=== PATIENT | male | born 1985 | race Hispanic/Latino ===

== ENCOUNTER 2019-12-12 09:49 | Emergency (ER) | payer OTHER, SELFPAY ==
[2019-12-12 10:01] VITALS: BP 123/69; PULSE 72; RESP 16; TEMP 36.8; O2SAT 100
--- NOTE | 2019-12-12 11:18 | ED.BACK ---
HPI - Back Pain/Injury General Chief Complaint: Back Pain/Injury Stated Complaint: Back Pain History of Present Illness HPI Narrative: This is a 34-year-old male comes in complaining of thoracic back pain that started approximately a week ago per patient states that he was getting out of the truck and turned and he started having pain put something on it and the pain went away. Patient said the pain has come back off and on and when he reaches his back hurts. Patient denies any shortness of breath or pain with breathing Related Data Allergies Allergy/AdvReac Type Severity Reaction Status Date / Time No Known Allergies Allergy Unverified 12/12/19 10:45 Review of Systems Review of Systems: Narrative: CONSTITUTIONAL: Denies fever, chills, or sweats. EYES: Denies visual changes, redness, or discharge. ENT: Denies rhinorrhea, congestion, sore throat, or otalgia. CARDIOVASCULAR:Denies chest pain, palpitations, or edema. RESPIRATORY: Denies cough or dyspnea. GASTROINTESTINAL: Denies abdominal pain, nausea, vomiting, or diarrhea. GENITOURINARY: Denies dysuria or hematuria. SKIN:[Denies rash or itching. MUSCULOSKELETAL: Positive back pain, joint pain, or myalgia. NEUROLOGIC: Denies headache, numbness, or weakness. PSYCHIATRIC:Denies anxiety or depression PMFSH Social History Social History Gender identity (if verbalized by the patient): Male Comments At time as signature, I have reviewed and agree with nursing past medical, social, surgical and family history. Please see nursing chart for further information. There is no relevant family history pertinent to the presenting complaint. Exam Narrative: Exam Narrative: GENERAL:Well-appearing, well-nourished, and in no acute distress. HEAD:Normocephalic, atraumatic. EYES: PERRLA and EOMI. ENT: Nares clear, no rhinorrhea or epistaxis. Mucous membranes moist. NECK: Supple. CHEST: Clear to auscultation. No respiratory distress. HEART: Regular rate and rhythm. No murmur heard. Normal peripheral pulses. ABDOMEN: Soft, nontender, nondistended, normal active bowel sounds. EXTREMITIES: Normal range of motion. No edema. Painful with reaching or grabbing radiation on the back towards the stomach or rib cage periodically. No pain with palpitation SKIN: Warm, dry, no rash. NEURO: No focal deficits. Alert and oriented x3. Course Vital Signs Vital signs: Vital Signs Temperature 98.2 F 12/12/19 10:01 Pulse Rate 72 12/12/19 10:01 Respiratory Rate 16 12/12/19 10:01 Blood Pressure 123/69 12/12/19 10:01 Pulse Oximetry 100 12/12/19 10:01 Temperature 98.2 F 12/12/19 10:01 Pulse Rate 72 12/12/19 10:01 Respiratory Rate 16 12/12/19 10:01 Blood Pressure 123/69 12/12/19 10:01 Pulse Oximetry 100 12/12/19 10:01 Discharge Plan Discharge Clinical Impression: Muscle spasm Back pain, thoracic Qualifiers: Chronicity: acute Back pain laterality: right Qualified Code(s): M54.6 - Pain in thoracic spine Patient Disposition: Home, Self-Care Condition: Stable Instructions: Antibiotic Form, Muscle Spasm (ED), Back Pain (ED), Lower Back Exercises (ED), Back Pain in Older Children and Adolescents (ED) Additional Instructions: Ice and heat to the area for 20-30 minutes Gentle stretching exercises, Caution with lifting, bending, stooping, twisting Avoid pushing, pulling Take muscle relaxants as directed--caution drowsiness and no driving or alcohol Anti-inflammatory medicine as directed--take with food May take the muscle relaxant and anti-inflammatory at the same time Follow-up with your PCP if not improving in 5-7 days Prescriptions: New cyclobenzaprine 10 mg tablet 10 mg PO TID PRN (Reason: muscle spasm) Qty: 20 RF: 0 ibuprofen 800 mg tablet 800 mg PO Q6H PRN (Reason: pain) Qty: 30 RF: 0 Follow-up/Referrals: PHYSICIAN,DIGITAL OPERATIONS ANALYST [Primary Care Provider] - Time of Disposition: 11:22
== END 2019-12-12 11:26 | disposition home or self-care (01) ==
PROVIDERS: Emergency Provider Nurse Practitioner Family
DX: M62.830 Muscle spasm of back (principal)
CPT/HCPCS: 99213; G0463

== ENCOUNTER 2023-08-16 08:54 | Emergency (ER) | payer OTHER, SELFPAY ==
[2023-08-16 09:12] VITALS: BP 135/75; PULSE 129; RESP 16; TEMP 38.5; O2SAT 99
--- NOTE | 2023-08-16 09:41 | ED.GENADULT ---
HPI - General Adult General Chief complaint: Upper Respiratory Infection Stated complaint: sore throat,mouth hurts Source: patient Mode of arrival: ambulatory Limitations: no limitations History of Present Illness HPI narrative: Patient presents for evaluation of cervical lymphadenopathy a that started yesterday. He indicates he had a dental extraction on Tuesday of last week. He has some swelling in the gums adjacent to site of dental extraction. He has experienced hot flashes and chills. He indicates that he has pain with swallowing. He has an occasional mid cough but denies SOB, nausea, vomiting or diarrhea. He took ibuprofen for his symptoms. He had improvement in his pain for about two hours and pain returned thereafter. He smokes 1 ppd. No recent sick contacts to his knowledge. Related Data Home Medications Medication Instructions Recorded Confirmed atorvastatin 20 mg tablet mg 08/16/23 08/16/23 trazodone 50 mg tablet mg 08/16/23 Allergies Allergy/AdvReac Type Severity Reaction Status Date / Time No Known Allergies Allergy Verified 08/16/23 09:10 Review of Systems Review of Systems: CONSTITUTIONAL: Reports hot flashes and chills. Denies fever.. EYES: Denies visual changes, redness, or discharge. ENT: reports cervical lymphadenopathy and pain when swallowing. Denies rhinorrhea, congestion, or otalgia. CARDIOVASCULAR: Denies chest pain, palpitations, or edema. RESPIRATORY: Reports occasional cough. Denies dyspnea. GASTROINTESTINAL: Denies abdominal pain, nausea, vomiting, or diarrhea. GENITOURINARY: Denies dysuria or hematuria. SKIN: Denies rash or itching. MUSCULOSKELETAL: Denies back pain, joint pain, or myalgia. NEUROLOGIC: Denies headache, numbness, dizziness, or weakness. PSYCHIATRIC: Denies anxiety or depression. [facility] Past Medical History Medical History No pertinent past medical history Surgical History Surgical History No pertinent past surgical history Family History Family History Mother Family history non-contributory Social History Social History Smoking packs per day: 1 Smoking cigarettes per day: 20.0 Smoking status: Current every day smoker Substance use: never Living arrangements: with family Gender identity (if verbalized by the patient): Male Sexual Orientation (if Verbalized by the Patient): Straight or Heterosexual Spiritual care concerns: No Exam Narrative: GENERAL: Well-appearing, well-nourished, and in no acute distress. HEAD: Normocephalic, atraumatic. EYES: PERRLA and EOMI. ENT: Nares clear, no rhinorrhea or epistaxis. Mucous membranes moist. Tooth #7 is absent. There is some swelling in the gumline adjacent to absent tooth. There is posterior pharyngeal erythema without exduate. Uvula is midline. Bilateral TMs pearly calderon nonbulging NECK: Supple. Mild tenderness in cervical ymph nodes bilaterally. No carotid bruits or JVD CHEST: Clear to auscultation. No respiratory distress. No wheezes rales or rhonchi HEART: Regular rate and rhythm. No murmur heard. Normal peripheral pulses. ABDOMEN: Soft, nontender, nondistended, normal active bowel sounds. EXTREMITIES: Normal range of motion. No edema. SKIN: Warm, dry, no rash. NEURO: No focal deficits. Alert and oriented x3. PSYCH: Normal mood and affect. Course Course Emergency Course: This is a 38-year-old male who presented for evaluation of bilateral cervical lymphadenopathy, pain with swallowing, and some tenderness and swelling in the gum lines after dental extraction. Nurse performed COVID, flu, strep which were all negative. Will tx with augmentin. Increase hydration. OTC agents for symptom. Follow-up with primary provider. Go to the
== END 2023-08-16 09:51 | disposition home or self-care (01) ==
PROVIDERS: Emergency Provider Nurse Practitioner
DX: J02.9 Acute pharyngitis, unspecified (principal); R59.9 Enlarged lymph nodes, unspecified; Z98.818 Other dental procedure status; F17.210 Nicotine dependence, cigarettes, uncomplicated
CPT/HCPCS: 87081; 87426; 87804; 87880; 99213; C9803; G0463

== ENCOUNTER 2024-02-23 19:10 | Emergency (ER) | payer OTHER, SELFPAY ==
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
[2024-02-23 19:29] VITALS: BP 153/87; PULSE 72; RESP 16; TEMP 36.9; O2SAT 97
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
== END 2024-02-23 19:55 | disposition home or self-care (01) ==
PROVIDERS: Emergency Provider Nurse Practitioner Family
DX: S39.012A Strain of muscle, fascia and tendon of lower back, initial encounter (principal); V43.52XA Car driver injured in collision with other type car in traffic accident, initial encounter; F17.210 Nicotine dependence, cigarettes, uncomplicated
CPT/HCPCS: 72100; 99213; G0463